=== PATIENT | female | born 1945 | race Caucasian/White ===

== ENCOUNTER 2018-05-22 09:59 | Inpatient (IN) | payer OTHER ==
[~2018-05-22] VITALS: Ht 167.6 cm; Wt 65.0 kg
[2018-05-22 10:01] VITALS: Ht 167.6 cm; Wt 65.0 kg
[2018-05-22] MEDS ORDERED: PANTOPRAZOLE IV 80 MG in SOD CHLORIDE 0.9% 100 ML IV STA (10:07)
[2018-05-22] MEDS ORDERED: ONDANSETRON 4 MG INJ IV STA (10:07)
[2018-05-22] MEDS ORDERED: PANTOPRAZOLE IV 80 MG in SOD CHLORIDE 0.9% 100 ML IVPB STA (10:07)
[2018-05-22] MEDS ORDERED: SOD CHLORIDE 0.9% 1,000 ML IV STA (10:07)
--- NOTE | 2018-05-22 10:51 | ERD ---
ER Documentation Chief Complaint Chief Complaint BIB RA FOR EVAL OF AP. PT ON BRILINTA FOR HEART STENT. EPISODE OF DARK STOO HPI Very pleasant 72-year-old female who is visiting from out of town. The patient takes Brilinta for cardiac stent. The patient notes less than 24 hours of symptoms including malonic stool. The patient describes mild epigastric discomfort and now one episode of coffee-ground emesis. She does describe some diaphoresis and generalized malaise. She denies drinking alcohol or other NSAIDs at this time. No prior history of GI bleed. She denies any chest pain or pressure. ROS All systems reviewed and are negative except as per history of present illness. Allergies Allergies: Coded Allergies: Penicillins (Verified Allergy, Unknown, 05/22/18) PMhx/Soc History of Surgery: Yes (right breast ) Anesthesia Reaction: No Hx Neurological Disorder: No Hx Respiratory Disorders: No Hx Cardiac Disorders: Yes (stent, htn,) Hx Psychiatric Problems: No Hx Miscellaneous Medical Probl: No Hx Alcohol Use: No Hx Substance Use: No Hx Tobacco Use: No Smoking Status: Never smoker FmHx Family History: No diabetes Physical Exam Vitals Vital Signs Date Temp Pulse Resp B/P (MAP) Pulse Ox O2 O2 Flow FiO2 Time Delivery Rate 05/22/18 98.9 77 18 103/66 99 Room Air 12:08 (78) 05/22/18 95 16 118/87 100 Room Air 10:53 (97) 05/22/18 Nasal 2 10:19 Cannula 05/22/18 97.8 122 18 111/70 98 10:01 (84) Physical Exam General: Pallor and diaphoresis Head: Normocephalic, atraumatic. Eyes: Pupils equally reactive, EOM intact ENT: Moist mucous membranes Neck: Supple, no lymphadenopathy Respiratory: Lungs clear bilaterally, no distress Cardiovascular: Tachycardia RRR, no murmurs, rubs, or gallops Abdominal: Soft, mild epigastric abdominal tenderness without rebound or guarding, non-distended, no peritoneal signs : Deferred given obvious evidence of coffee-ground emesis at bedside MSK: No edema, no unilateral swelling, 5/5 strength Neurologic: Alert and oriented, moving all extremities, normal speech, no focal weakness, no cerebellar signs Skin: No rash Psych: Normal mood Result Diagram: 05/22/18 1015 05/22/18 1015 Results 24 hrs Laboratory Tests Test 05/22/18 10:15 White Blood Count 11.7 10^3/ul Red Blood Count 3.94 10^6/ul Hemoglobin 11.6 g/dl Hematocrit 36.1 % Mean Corpuscular Volume 91.6 fl Mean Corpuscular Hemoglobin 29.4 pg Mean Corpuscular Hemoglobin Concent 32.1 g/dl Red Cell Distribution Width 14.0 % Platelet Count 410 10^3/UL Mean Platelet Volume 9.9 fl Immature Granulocytes % 0.400 % Neutrophils % 68.8 % Lymphocytes % 22.5 % Monocytes % 7.8 % Eosinophils % 0.2 % Basophils % 0.3 % Nucleated Red Blood Cells % 0.0 /100WBC Immature Granulocytes # 0.050 10^3/ul Neutrophils # 8.1 10^3/ul Lymphocytes # 2.6 10^3/ul Monocytes # 0.9 10^3/ul Eosinophils # 0.0 10^3/ul Basophils # 0.0 10^3/ul Nucleated Red Blood Cells # 0.0 10^3/ul Prothrombin Time 13.0 Sec Prothrombin Time Ratio 1.0 INR International Normalized Ratio 0.97 Activated Partial Thromboplast Time 23.0 Sec Sodium Level 143 mmol/L Potassium Level 4.5 mmol/L Chloride Level 109 mmol/L Carbon Dioxide Level 20 mmol/L Anion Gap 14 Blood Urea Nitrogen 30 mg/dl Creatinine 0.60 mg/dl Est Glomerular Filtrat Rate mL/min > 60 mL/min Glucose Level 205 mg/dl Calcium Level 9.1 mg/dl Total Bilirubin 0.5 mg/dl Direct Bilirubin 0.00 mg/dl Indirect Bilirubin 0.5 mg/dl Aspartate Amino Transf (AST/SGOT) 20 IU/L Alanine Aminotransferase (ALT/SGPT) 18 IU/L Alkaline Phosphatase 69 IU/L Troponin I < 0.012 ng/ml Total Protein 6.9 g/dl Albumin 4.0 g/dl Globulin 2.90 g/dl Albumin/Globulin Ratio 1.37 Lipase 76 U/L Current Medications Medications Dose Sig/Shaun Start Time Status Last (Trade) Ordered Route PRN Stop Time Admin Dose Reason Admin Sodium 1,000 ml @ Q1H STAT 05/22/18 DC 05/22/18 Chloride 1,000 mls/hr IV 10:07 05/22/18 10:24 11:06 Pantoprazole 100 ml @ ONCE STAT 05/22/18 DC 05/22/18 80 mg/Sodium 400 mls/hr IVPB 10:07 05/22/18 11:08 Chloride 10:21 Pantoprazole 100 ml @ ONCE STAT 05/22/18 05/22/18 80 mg/Sodium 10 mls/hr IV 10:07 05/22/18 11:50 Chloride 20:06 Ondansetron 4 mg ONCE STAT 05/22/18 DC 05/22/18 HCl (Zofran IV 10:07 05/22/18 10:24 Inj) 10:11 Sodium 1,000 ml @ Q10H IV 05/22/18 Chloride 100 mls/hr 11:34 IV Flush 3 ml PER 05/22/18 (NS 3 ml) PROTOCOL IV 12:00 Ondansetron 4 mg Q6H PRN 05/22/18 HCl (Zofran IV 12:00 Inj) NAUSEA/VOMITI NG 650 mg Q6H PRN 05/22/18 Acetaminophen PO .PAIN 1-3 12:00 (Tylenol OR TEMP Tab) Pantoprazole 100 ml @ Q10H IV 05/22/18 80 mg/Sodium 10 mls/hr 12:00 Chloride Morphine 2 mg Q4H PRN 05/22/18 Sulfate IV SEVERE 12:00 (morphine) PAIN LEVEL 7-10 Ondansetron 4 mg BRIDGE ORDER 05/22/18 HCl (Zofran PRN IV 12:00 05/23/18 Inj) NAUSEA/VOMITI 11:59 NG 650 mg ER BRIDGE 05/22/18 Acetaminophen PRN PO 12:00 05/23/18 (Tylenol .MILD PAIN 11:59 Tab) 1-3 OR TEMP Procedures/MDM EKG, MONITORS, & DIAGNOSTIC IMAGING: EKG: I reviewed and interpreted a 12-lead EKG. Rhythm: Sinus tachycardia rate of 103 ST Changes: No contiguous ST segment elevations T waves: No contiguous T wave inversions Impression: No evidence of acute cardiac ischemia CT abdomen and pelvis: IMPRESSION: No evidence of urolithiasis, obstructive uropathy, diverticulitis or appendicitis. Diverticulosis. Cholelithiasis. Hiatal hernia. No bowel mass or obstruction. Senescent degenerative changes spine. Osteoarthritis right hip joint. LAB INTERPRETATION: I reviewed the laboratory testing and it shows mild anemia MEDICAL DECISION MAKING: The patient has clinical signs and symptoms very consistent with upper GI hemorrhage complaining of coffee-ground emesis with melanotic stool in the setting of taking Brilinta. Likely gastric etiology. PPI bolus and drip would be appropriate. Patient has a mostly benign abdominal exam but CT imaging would be indicated given mild epigastric abdominal discomfort. I do not believe this is consistent with acute coronary syndrome. The patient will benefit from inpatient hospitalization and GI consultation ER COURSE: * Placed on the monitor, 2 large bore peripheral IVs were inserted. Patient given IV fluids and nausea medication * Hemoglobin appears to be stable. Continue to monitor. Blood pressure is holding. No indication for transfusion at this time. * PPI bolus and drip was initiated. * Pain improved. * At this time no indication for NG tube or NG lavage. No indication for blood transfusion. Inpatient hospitalization with GI consultation appropriate. CONSULTATION: None DISPOSITION PLAN: Accepting care team and consultations: I discussed the current laboratory data, diagnostic imaging and emergency care provided. Admitting team: Dr. Gomez Admitting team indication: Insurance directed Departure Diagnosis: Primary Impression: Upper GI bleed Additional Impression: Epigastric abdominal pain Condition: Stable GLENDY GOULD MD May 22, 2018 10:51
[2018-05-22] MEDS ORDERED: ONDANSETRON 4 MG INJ IV PRN ×2 (12:00)
[2018-05-22] MEDS: PANTOPRAZOLE IV 80 MG in SOD CHLORIDE 0.9% 100 ML IV SCH ×2 (12:00→22:57)
[2018-05-22] MEDS ORDERED: morphine 2 MG INJ IV PRN (12:00)
[2018-05-22] MEDS ORDERED: ACETAMINOPHEN 325 MG TAB PO PRN ×2 (12:00)
[2018-05-22] MEDS ORDERED: NACL 0.9% 3 ML SYG IV SCH (12:00)
--- NOTE | 2018-05-22 12:05 | HP ---
Date/Time of Note Date/Time of Note DATE: 05/22/18 TIME: 12:04 Assessment/Plan VTE Prophylaxis Pharmacological prophylaxis: other Lines/Catheters IV C[facility]ter Type [facility]from [facility] Saline Lock Assessment/Plan Hospital Course Patient is a female with a past medical history significant for coronary artery disease and depression who presents to [facility] for 1 day onset of dark stool. Patient states that she has never had a upper GI bleed, dark stool before but does have a history of hemorrhoids. Patient states that there was nothing that preceded the event, she was visiting from [facility] to help her daughter with a new baby. Patient currently complains of some abdominal discomfort but denies any abdominal pain. Patient denies chest pain, shortness of breath, headache, leg pain, bowel or bladder dysfunction. Objective Physical exam General: Patient is laying in bed and answers questions appropriately Mentation: Patient is alert and oriented 4, Head: Normocephalic atraumatic Eyes: EOMI, pupils reactive to light Neck: Supple, nontender, midline Respiratory: Clear to auscultation bilaterally Cardiovascular: regular rate, no obvious murmurs Gastrointestinal: non-tender to palpation, bowel sounds heard. Neurological: Moves all extremities spontaneously Skin: No new skin lesions Assessment and plan Upper GI bleed -GI consulted -N.p.o. -IV fluid -Protonix drip -Hemoglobin will be rechecked every 6 hours for 1 day -Fecal occult -Hold Brilinta and aspirin Coronary artery disease -Hold Brilinta and aspirin, stent was placed near 1 year ago, resume when safe with GI -Hold p.o. meds for now, keep n.p.o. for possible GI intervention Dyslipidemia -Resume home meds and possible Depression -Resume home meds with possible Disposition -GI consultation pending. Result Diagram: 05/22/18 1015 05/22/18 1015 Results 24hrs Laboratory Tests Test 05/22/18 10:15 White Blood Count 11.7 H Red Blood Count 3.94 L Hemoglobin 11.6 L Hematocrit 36.1 L Mean Corpuscular Volume 91.6 Mean Corpuscular Hemoglobin 29.4 Mean Corpuscular Hemoglobin Concent 32.1 Red Cell Distribution Width 14.0 Platelet Count 410 Mean Platelet Volume 9.9 Immature Granulocytes % 0.400 Neutrophils % 68.8 Lymphocytes % 22.5 Monocytes % 7.8 Eosinophils % 0.2 Basophils % 0.3 Nucleated Red Blood Cells % 0.0 Immature Granulocytes # 0.050 H Neutrophils # 8.1 H Lymphocytes # 2.6 Monocytes # 0.9 Eosinophils # 0.0 Basophils # 0.0 Nucleated Red Blood Cells # 0.0 Prothrombin Time 13.0 Prothrombin Time Ratio 1.0 INR International Normalized Ratio 0.97 Activated Partial Thromboplast Time 23.0 Sodium Level 143 Potassium Level 4.5 Chloride Level 109 Carbon Dioxide Level 20 L Anion Gap 14 H Blood Urea Nitrogen 30 H Creatinine 0.60 Est Glomerular Filtrat Rate mL/min > 60 Glucose Level 205 Calcium Level 9.1 Total Bilirubin 0.5 Direct Bilirubin 0.00 Indirect Bilirubin 0.5 Aspartate Amino Transf (AST/SGOT) 20 Alanine Aminotransferase (ALT/SGPT) 18 Alkaline Phosphatase 69 Troponin I < 0.012 Total Protein 6.9 Albumin 4.0 Globulin 2.90 Albumin/Globulin Ratio 1.37 Lipase 76 HPI/ROS Admit Date/Time Admit Date/Time PMH/Family/Social Past Medical History Medications Current Medications Pantoprazole 80 mg/Sodium Chloride 100 ml @ 10 mls/hr ONCE STAT IV Last administered on 05/22/18at 11:50; Admin Dose 10 MLS/HR; Start 05/22/18 at 10:07; Stop 05/22/18 at 20:06 Sodium Chloride 1,000 ml @ 100 mls/hr Q10H IV ; Start 05/22/18 at 11:34 IV Flush (NS 3 ml) 3 ml PER PROTOCOL IV ; Start 05/22/18 at 12:00 Ondansetron HCl (Zofran Inj) 4 mg Q6H PRN IV NAUSEA/VOMITING; Start 05/22/18 at 12:00 Acetaminophen (Tylenol Tab) 650 mg Q6H PRN PO .PAIN 1-3 OR TEMP; Start 05/22/18 at 12:00 Pantoprazole 80 mg/Sodium Chloride 100 ml @ 10 mls/hr Q10H IV ; Start 05/22/18 at 12:00 Morphine Sulfate (morphine) 2 mg Q4H PRN IV SEVERE PAIN LEVEL 7-10; Start 05/22/18 at 12:00 Ondansetron HCl (Zofran Inj) 4 mg BRIDGE ORDER PRN IV NAUSEA/VOMITING; Start 05/22/18 at 12:00; Stop 05/23/18 at 11:59 Acetaminophen (Tylenol Tab) 650 mg ER BRIDGE PRN PO .MILD PAIN 1-3 OR TEMP; Start 05/22/18 at 12:00; Stop 05/23/18 at 11:59 Coded Allergies: Penicillins (Verified Allergy, Unknown, 05/22/18) Social History Smoking Status: Never smoker Exam/Review of Systems Vital Signs Vitals Vital Signs Date Temp Pulse Resp B/P (MAP) Pulse Ox O2 O2 Flow FiO2 Time Delivery Rate 05/22/18 95 16 118/87 100 Room Air 10:53 (97) 05/22/18 2 10:19 05/22/18 97.8 10:01 MADIE MORILLO May 22, 2018 12:05
[2018-05-22 12:36] VITALS: BP 127/78; PULSE 93; RESP 18
[2018-05-22] MEDS: SOD CHLORIDE 0.9% 1,000 ML IV SCH ×2 (13:15→21:34)
--- NOTE | 2018-05-22 14:35 | CONS ---
Assessment/Plan Assessment/Plan Hospital Course (Demo Recall) Suspected GI bleed with melanotic stools and coffee grounds emesis Anemia secondary to above CAD status post cardiac stent [place] HTN Hemorrhoids Plan: Discussed the need for colonoscopy and EGD with the patient and daughter at bedside. Benefits, alternatives, risk, and potential complications of the procedure were discussed with the patient who is agreeable to proceed. NPO, bowel prep. Continue IV protonix infusion. Monitor serial CBC. Transfuse to keep Hgb >7.5 Patient seen in collaboration with Dr. Beard CC: LALITO BEARD ; Consultation Date/Type/Reason Admit Date/Time Date of Consultation: May 22, 2018 Type of Consult gastroenterology Reason for Consultation melena, suspected GI bleed Requesting Provider: MADIE MORILLO Date/Time of Note DATE: 05/22/18 TIME: 14:15 Hx of Present Illness Patient is a 72 y/o female admitted yesterday with a 1 day history of dark stools associated with nausea and coffee grounds emesis. She reports a history of hemorrhoids and occasional bright red blood per rectum. She does report some weakness and dizziness. She reports multiple dark bowel movements upon arrival to the hospital, about 2 episodes today. She denies shortness of breath or chest pain, fevers, chills or weakness. She reports having had a colonoscopy last over 5 years ago. She reports a history of CAD and [place] last year status post a cardiac stent 07/08/17. She is on ASA and brilinta which are both on hold at this point. She otherwise has a history of HTN, hyperlipidemia, breast cancer. Denies any major abdominal surgeries. Constitutional: no complaints ENT: No no complaints, No bleeding, No pain, No congestion, No discharge, No dysphagia, No sore throat, No other Respiratory: No no complaints, No pain, No cough, No pleuritic pain, No shortness of breath, No sputum, No wheezing, No other Cardiovascular: lightheadedness Gastrointestinal: blood, nausea, vomiting Genitourinary: No no complaints, No bleeding, No dysuria, No discharge, No flank pain, No hematuria, No other Musculoskeletal: No no complaints, No back pain, No bone/joint pain, No neck pain, No restricted range of motion, No swelling, No other Skin: No no complaints, No bruising, No erythema, No laceration, No pruritis, No rash, No skin lesions, No other Neurologic: No no complaints, No confusion, No dizziness, No focal-weakness, No headache, No syncope, No seizure, No other Psychological: No no complaints, No nl mood/affect, No anxiety, No confusion, No depression, No suicidal, No other Past Medical History Medications Current Medications Pantoprazole 80 mg/Sodium Chloride 100 ml @ 10 mls/hr ONCE STAT IV Last administered on 05/22/18at 11:50; Admin Dose 10 MLS/HR; Start 05/22/18 at 10:07; Stop 05/22/18 at 20:06 Sodium Chloride 1,000 ml @ 100 mls/hr Q10H IV Last administered on 05/22/18at 13:15; Admin Dose 100 MLS/HR; Start 05/22/18 at 11:34 IV Flush (NS 3 ml) 3 ml PER PROTOCOL IV ; Start 05/22/18 at 12:00 Ondansetron HCl (Zofran Inj) 4 mg Q6H PRN IV NAUSEA/VOMITING; Start 05/22/18 at 12:00 Acetaminophen (Tylenol Tab) 650 mg Q6H PRN PO .PAIN 1-3 OR TEMP; Start 05/22/18 at 12:00 Pantoprazole 80 mg/Sodium Chloride 100 ml @ 10 mls/hr Q10H IV ; Start 05/22/18 at 12:00 Morphine Sulfate (morphine) 2 mg Q4H PRN IV SEVERE PAIN LEVEL 7-10; Start 05/22/18 at 12:00 Ondansetron HCl (Zofran Inj) 4 mg BRIDGE ORDER PRN IV NAUSEA/VOMITING; Start 05/22/18 at 12:00; Stop 05/23/18 at 11:59 Acetaminophen (Tylenol Tab) 650 mg ER BRIDGE PRN PO .MILD PAIN 1-3 OR TEMP; Start 05/22/18 at 12:00; Stop 05/23/18 at 11:59 Allergies: Coded Allergies: Penicillins (Verified Allergy, Unknown, 05/22/18) Past Surgical History Past Surgical Hx: no surgical history Family History Significant Family History: cancer (father with cancer) Social History Smoking Status: Never smoker Exam/Review of Systems Exam Vitals Vital Signs Date Temp Pulse Resp B/P (MAP) Pulse Ox O2 O2 Flow FiO2 Time Delivery Rate 05/22/18 97.8 93 18 127/78 96 12:36 (94) 05/22/18 Room Air 12:08 05/22/18 2 10:19 Results Result Diagram: 05/22/18 1015 05/22/18 1015 Results 24hrs Laboratory Tests Test 05/22/18 10:15 White Blood Count 11.7 H Red Blood Count 3.94 L Hemoglobin 11.6 L Hematocrit 36.1 L Mean Corpuscular Volume 91.6 Mean Corpuscular Hemoglobin 29.4 Mean Corpuscular Hemoglobin Concent 32.1 Red Cell Distribution Width 14.0 Platelet Count 410 Mean Platelet Volume 9.9 Immature Granulocytes % 0.400 Neutrophils % 68.8 Lymphocytes % 22.5 Monocytes % 7.8 Eosinophils % 0.2 Basophils % 0.3 Nucleated Red Blood Cells % 0.0 Immature Granulocytes # 0.050 H Neutrophils # 8.1 H Lymphocytes # 2.6 Monocytes # 0.9 Eosinophils # 0.0 Basophils # 0.0 Nucleated Red Blood Cells # 0.0 Prothrombin Time 13.0 Prothrombin Time Ratio 1.0 INR International Normalized Ratio 0.97 Activated Partial Thromboplast Time 23.0 Sodium Level 143 Potassium Level 4.5 Chloride Level 109 Carbon Dioxide Level 20 L Anion Gap 14 H Blood Urea Nitrogen 30 H Creatinine 0.60 Est Glomerular Filtrat Rate mL/min > 60 Glucose Level 205 Calcium Level 9.1 Total Bilirubin 0.5 Direct Bilirubin 0.00 Indirect Bilirubin 0.5 Aspartate Amino Transf (AST/SGOT) 20 Alanine Aminotransferase (ALT/SGPT) 18 Alkaline Phosphatase 69 Troponin I < 0.012 Total Protein 6.9 Albumin 4.0 Globulin 2.90 Albumin/Globulin Ratio 1.37 Lipase 76 Medications Medication Current Medications Pantoprazole 80 mg/Sodium Chloride 100 ml @ 10 mls/hr ONCE STAT IV Last administered on 05/22/18at 11:50; Admin Dose 10 MLS/HR; Start 05/22/18 at 10:07; Stop 05/22/18 at 20:06 Sodium Chloride 1,000 ml @ 100 mls/hr Q10H IV Last administered on 05/22/18at 13:15; Admin Dose 100 MLS/HR; Start 05/22/18 at 11:34 IV Flush (NS 3 ml) 3 ml PER PROTOCOL IV ; Start 05/22/18 at 12:00 Ondansetron HCl (Zofran Inj) 4 mg Q6H PRN IV NAUSEA/VOMITING; Start 05/22/18 at 12:00 Acetaminophen (Tylenol Tab) 650 mg Q6H PRN PO .PAIN 1-3 OR TEMP; Start 05/22/18 at 12:00 Pantoprazole 80 mg/Sodium Chloride 100 ml @ 10 mls/hr Q10H IV ; Start 05/22/18 at 12:00 Morphine Sulfate (morphine) 2 mg Q4H PRN IV SEVERE PAIN LEVEL 7-10; Start 05/22/18 at 12:00 Ondansetron HCl (Zofran Inj) 4 mg BRIDGE ORDER PRN IV NAUSEA/VOMITING; Start 05/22/18 at 12:00; Stop 05/23/18 at 11:59 Acetaminophen (Tylenol Tab) 650 mg ER BRIDGE PRN PO .MILD PAIN 1-3 OR TEMP; Start 05/22/18 at 12:00; Stop 05/23/18 at 11:59 ALVA ZHOU NP May 22, 2018 14:30
[2018-05-22] MEDS ORDERED: BISACODYL (EC) 5 MG TAB PO ONE ×2 (15:00→20:00)
[2018-05-22] MEDS ORDERED: MAGNESIUM CITRATE 300 ML BTL PO ONE (16:00)
[2018-05-22] MEDS ORDERED: POLYETHYLENE GLYCOL 3350 119 GM POWDER PO ONE ×2 (17:00→19:00)
[2018-05-22] MEDS ORDERED: METOCLOPRAMIDE 10 MG INJ IV ONE (18:00)
[2018-05-22] MEDS ORDERED: METOCLOPRAMIDE 10 MG INJ IV PRN (18:30)
[2018-05-22 19:50] VITALS: BP 127/80; PULSE 99; RESP 16
[2018-05-23] VITALS (12 sets, daily range): BP systolic 115–154; BP diastolic 63–88; PULSE 70–100; RESP 12–22
[2018-05-23] MEDS: SOD CHLORIDE 0.9% 1,000 ML IV SCH ×4 (06:10→18:40)
--- NOTE | 2018-05-23 08:17 | PREAC ---
Date/Time of Note Date/Time of Note DATE: 05/23/18 TIME: 08:14 Anesthesia Eval and Record Evaluation Time Pre-Procedure Interview DATE: 05/23/18 TIME: 08:14 Age 72 Sex female NPO: 8 hrs Preoperative diagnosis GI Bleed Planned procedure EGD, Colonoscopy Past Medical History Past Medical History: Includes Cardio: HTN, Dyslipidemia, [place] (07/09/27), CAD (07/08/17 PCI with Stent, no active CP or SOB), PTCA/Stent Heme: Anemia (8.4 Hb) Psych: Depression Surgery & Anesthesia Issues No known issue (Lumpectomy, no arm restriction) Meds Anticoagulation: No (Blinta d/c'd) Beta Annie within 24 hr: No Reason Beta Annie not given: Pt. not on B-Annie Current Medications Sodium Chloride 1,000 ml @ 100 mls/hr Q10H IV Last administered on 05/23/18at 06:10; Admin Dose 100 MLS/HR; Start 05/22/18 at 11:34 IV Flush (NS 3 ml) 3 ml PER PROTOCOL IV ; Start 05/22/18 at 12:00 Ondansetron HCl (Zofran Inj) 4 mg Q6H PRN IV NAUSEA/VOMITING Last administered on 05/22/18at 16:34; Admin Dose 4 MG; Start 05/22/18 at 12:00 Acetaminophen (Tylenol Tab) 650 mg Q6H PRN PO .PAIN 1-3 OR TEMP; Start 05/22/18 at 12:00 Pantoprazole 80 mg/Sodium Chloride 100 ml @ 10 mls/hr Q10H IV Last administered on 05/22/18at 22:57; Admin Dose 10 MLS/HR; Start 05/22/18 at 12:00 Morphine Sulfate (morphine) 2 mg Q4H PRN IV SEVERE PAIN LEVEL 7-10; Start 05/22/18 at 12:00 Metoclopramide HCl (Reglan) 10 mg Q4H PRN IV NAUSEA; Start 05/22/18 at 18:30 Meds reviewed: Yes Allergies Coded Allergies: Penicillins (Verified Allergy, Unknown, 05/22/18) Allergies Reviewed: Yes Labs/Studies Labs Reviewed: Reviewed by anesthesiologist Result Diagram: 05/23/18 0505 05/23/18 0505 Laboratory Tests 3/4/19 05:05 Blood Bank Test 05/22/18 10:16 Antibody Screen NEGATIVE Blood Type O POSITIVE test: N/A Studies: ECG (ST with RBBB, RVH) Pre-procedure Exam Last vitals Vital Signs Date Temp Pulse Resp B/P (MAP) Pulse Ox O2 O2 Flow FiO2 Time Delivery Rate 05/23/18 98.0 86 18 154/78 100 Room Air 08:07 (103) 05/22/18 2 10:19 Airway: Adequate mouth opening, Adequate thyromental dist Mallampati: Mallampati II Teeth: Normal Lung: Normal Heart: Normal ASA Physical Status ASA physical status: 3 Emergency: None Planned Anesthetic General/MAC: MAC Pre-operative Attestations Prior to commencing anesthesia and surgery, the patient was re-evaluated, there was verification of: *The patient's identity *The results of appropriate recent lab work and preoperative vital signs *The above evaluation not changing prior to induction *Anesthetic plan, risk benefits, alternative and complications discussed with patient/family; questions answered; patient/family understands, accepts and wishes to proceed. ARTURO VALERIO ROPE TOW OPERATOR May 23, 2018 08:17
[2018-05-23] MEDS: PANTOPRAZOLE IV 80 MG in SOD CHLORIDE 0.9% 100 ML IV SCH (09:04)
--- NOTE | 2018-05-23 10:05 | PN ---
Date/Time of Note Date/Time of Note DATE: 05/23/18 TIME: 10:05 Assessment/Plan VTE Prophylaxis Risk score (from [facility] [place])>0 risk: 2 SCD applied (from [facility] [place]): Yes Pharmacological prophylaxis: NA/contraindicated Pharm contraindication: bleeding Lines/Catheters IV [facility]ter Type (from [facility]): Saline Lock Assessment/Plan Assessment/Plan 1. Acute Upper GI bleed - patient with small amount of melena since admission but denies any profuse bleeding - GI on board and plans for EGD/Colonoscopy - Will continue on PPI and monitor H/H - Aspirin and Brilinta is currently on hold 2. Coronary artery disease - Hold Brilinta and aspirin, stent was placed near 1 year ago, resume when hemoglobin stabilizes - Will resume PO medications when able 3. Dyslipidemia -Resume home meds and possible 4. Depression - Resume home meds when tolerating PO 5. Disposition - Plan of care based on EGD/Colonoscopy results. Result Diagram: 05/23/18 0505 05/23/18 0505 Results 24hrs Laboratory Tests Test 05/22/18 10:15 05/22/18 13:48 05/22/18 17:57 05/23/18 00:50 White Blood Count 11.7 H Red Blood Count 3.94 L Hemoglobin 11.6 L 9.7 L 9.1 L Hematocrit 36.1 L 30.1 L 27.8 L Mean Corpuscular Volume 91.6 Mean Corpuscular 29.4 Hemoglobin Mean Corpuscular 32.1 Hemoglobin Concent Red Cell Distribution 14.0 Width Platelet Count 410 Mean Platelet Volume 9.9 Immature Granulocytes % 0.400 Neutrophils % 68.8 Lymphocytes % 22.5 Monocytes % 7.8 Eosinophils % 0.2 Basophils % 0.3 Nucleated Red Blood 0.0 Cells % Immature Granulocytes # 0.050 H Neutrophils # 8.1 H Lymphocytes # 2.6 Monocytes # 0.9 Eosinophils # 0.0 Basophils # 0.0 Nucleated Red Blood 0.0 Cells # Prothrombin Time 13.0 Prothrombin Time Ratio 1.0 INR International 0.97 Normalized Ratio Activated 23.0 Partial Thromboplast Time Sodium Level 143 Potassium Level 4.5 Chloride Level 109 Carbon Dioxide Level 20 L Anion Gap 14 H Blood Urea Nitrogen 30 H Creatinine 0.60 Est Glomerular Filtrat > 60 Rate mL/min Glucose Level 205 Calcium Level 9.1 Total Bilirubin 0.5 Direct Bilirubin 0.00 Indirect Bilirubin 0.5 Aspartate Amino 20 Transf (AST/SGOT) Alanine 18 Aminotransferase (ALT/SG PT) Alkaline Phosphatase 69 Troponin I < 0.012 Total Protein 6.9 Albumin 4.0 Globulin 2.90 Albumin/Globulin Ratio 1.37 Lipase 76 Stool Occult Blood POSITIVE Test 05/23/18 05:05 White Blood Count 6.9 # Red Blood Count 2.86 #L Hemoglobin 8.4 L Hematocrit 26.3 L Mean Corpuscular Volume 92.0 Mean Corpuscular 29.4 Hemoglobin Mean Corpuscular 31.9 L Hemoglobin Concent Red Cell Distribution 14.7 H Width Platelet Count 288 # Mean Platelet Volume 10.2 Immature Granulocytes % 0.300 Neutrophils % 61.3 Lymphocytes % 27.8 Monocytes % 9.5 Eosinophils % 0.7 Basophils % 0.4 Nucleated Red Blood 0.0 Cells % Immature Granulocytes # 0.020 Neutrophils # 4.2 Lymphocytes # 1.9 Monocytes # 0.7 Eosinophils # 0.1 Basophils # 0.0 Nucleated Red Blood 0.0 Cells # Sodium Level 144 Potassium Level 3.9 Chloride Level 113 H Carbon Dioxide Level 22 Anion Gap 9 # Blood Urea Nitrogen 13 # Creatinine 0.57 Est Glomerular Filtrat > 60 Rate mL/min Glucose Level 106 # Hemoglobin A1c 6.0 H Calcium Level 8.5 Magnesium Level 2.1 Total Bilirubin 0.1 L Direct Bilirubin 0.00 Indirect Bilirubin 0.1 Aspartate Amino 16 Transf (AST/SGOT) Alanine 25 Aminotransferase (ALT/SG PT) Alkaline Phosphatase 52 Total Protein 5.4 #L Albumin 3.0 #L Globulin 2.40 Albumin/Globulin Ratio 1.25 Subjective 24 Hr Interval Summary Free Text/Dictation Patient doing well and does admit to some dark stool this am but denies any hematemesis. Plans for EGD and colonoscopy today. Exam/Review of Systems Exam Vitals Vital Signs Date Temp Pulse Resp B/P (MAP) Pulse Ox O2 O2 Flow FiO2 Time Delivery Rate 05/23/18 98.0 86 18 154/78 100 Room Air 08:07 (103) 05/22/18 2 10:19 Intake and Output 05/22/18 05/22/18 05/23/18 1515:00 23:00 07:00 IntakeIntake Total 460 ml 670 ml OutputOutput Total 300 ml BalanceBalance 160 ml 670 ml Exam General: Patient is laying in bed and answers questions appropriately Neck: Supple, nontender, midline Respiratory: Clear to auscultation bilaterally. no wheezing Cardiovascular: regular rate and rhythm, no obvious murmurs Gastrointestinal: soft, non-tender to palpation, bowel sounds heard. Neurological: Moves all extremities spontaneously Skin: No new skin lesions Results Results 24hrs Laboratory Tests Test 05/22/18 10:15 05/22/18 13:48 05/22/18 17:57 05/23/18 00:50 White Blood Count 11.7 H Red Blood Count 3.94 L Hemoglobin 11.6 L 9.7 L 9.1 L Hematocrit 36.1 L 30.1 L 27.8 L Mean Corpuscular Volume 91.6 Mean Corpuscular 29.4 Hemoglobin Mean Corpuscular 32.1 Hemoglobin Concent Red Cell Distribution 14.0 Width Platelet Count 410 Mean Platelet Volume 9.9 Immature Granulocytes % 0.400 Neutrophils % 68.8 Lymphocytes % 22.5 Monocytes % 7.8 Eosinophils % 0.2 Basophils % 0.3 Nucleated Red Blood 0.0 Cells % Immature Granulocytes # 0.050 H Neutrophils # 8.1 H Lymphocytes # 2.6 Monocytes # 0.9 Eosinophils # 0.0 Basophils # 0.0 Nucleated Red Blood 0.0 Cells # Prothrombin Time 13.0 Prothrombin Time Ratio 1.0 INR International 0.97 Normalized Ratio Activated 23.0 Partial Thromboplast Time Sodium Level 143 Potassium Level 4.5 Chloride Level 109 Carbon Dioxide Level 20 L Anion Gap 14 H Blood Urea Nitrogen 30 H Creatinine 0.60 Est Glomerular Filtrat > 60 Rate mL/min Glucose Level 205 Calcium Level 9.1 Total Bilirubin 0.5 Direct Bilirubin 0.00 Indirect Bilirubin 0.5 Aspartate Amino 20 Transf (AST/SGOT) Alanine 18 Aminotransferase (ALT/SG PT) Alkaline Phosphatase 69 Troponin I < 0.012 Total Protein 6.9 Albumin 4.0 Globulin 2.90 Albumin/Globulin Ratio 1.37 Lipase 76 Stool Occult Blood POSITIVE Test 05/23/18 05:05 White Blood Count 6.9 # Red Blood Count 2.86 #L Hemoglobin 8.4 L Hematocrit 26.3 L Mean Corpuscular Volume 92.0 Mean Corpuscular 29.4 Hemoglobin Mean Corpuscular 31.9 L Hemoglobin Concent Red Cell Distribution 14.7 H Width Platelet Count 288 # Mean Platelet Volume 10.2 Immature Granulocytes % 0.300 Neutrophils % 61.3 Lymphocytes % 27.8 Monocytes % 9.5 Eosinophils % 0.7 Basophils % 0.4 Nucleated Red Blood 0.0 Cells % Immature Granulocytes # 0.020 Neutrophils # 4.2 Lymphocytes # 1.9 Monocytes # 0.7 Eosinophils # 0.1 Basophils # 0.0 Nucleated Red Blood 0.0 Cells # Sodium Level 144 Potassium Level 3.9 Chloride Level 113 H Carbon Dioxide Level 22 Anion Gap 9 # Blood Urea Nitrogen 13 # Creatinine 0.57 Est Glomerular Filtrat > 60 Rate mL/min Glucose Level 106 # Hemoglobin A1c 6.0 H Calcium Level 8.5 Magnesium Level 2.1 Total Bilirubin 0.1 L Direct Bilirubin 0.00 Indirect Bilirubin 0.1 Aspartate Amino 16 Transf (AST/SGOT) Alanine 25 Aminotransferase (ALT/SG PT) Alkaline Phosphatase 52 Total Protein 5.4 #L Albumin 3.0 #L Globulin 2.40 Albumin/Globulin Ratio 1.25 Medications Medication Current Medications Sodium Chloride 1,000 ml @ 100 mls/hr Q10H IV Last administered on 05/23/18at 06:10; Admin Dose 100 MLS/HR; Start 05/22/18 at 11:34 IV Flush (NS 3 ml) 3 ml PER PROTOCOL IV ; Start 05/22/18 at 12:00 Ondansetron HCl (Zofran Inj) 4 mg Q6H PRN IV NAUSEA/VOMITING Last administered on 05/22/18at 16:34; Admin Dose 4 MG; Start 05/22/18 at 12:00 Acetaminophen (Tylenol Tab) 650 mg Q6H PRN PO .PAIN 1-3 OR TEMP; Start 05/22/18 at 12:00 Pantoprazole 80 mg/Sodium Chloride 100 ml @ 10 mls/hr Q10H IV Last administered on 05/23/18at 09:04; Admin Dose 10 MLS/HR; Start 05/22/18 at 12:00 Morphine Sulfate (morphine) 2 mg Q4H PRN IV SEVERE PAIN LEVEL 7-10; Start 05/22/18 at 12:00 Metoclopramide HCl (Reglan) 10 mg Q4H PRN IV NAUSEA; Start 05/22/18 at 18:30 CALLUM VALVERDE MD May 23, 2018 10:05
[2018-05-23] MEDS ORDERED: DIPHENHYDRAMINE 50 MG INJ IV PRN (14:00)
[2018-05-23] MEDS ORDERED: ACETAMINOPHEN 500 MG TAB PO PRN (14:00)
[2018-05-23] MEDS ORDERED: ALBUTEROL 0.083% (NEB) 2.5 MG/3 ML AMP HHN PRN (14:00)
[2018-05-23] MEDS ORDERED: ONDANSETRON 4 MG INJ IV PRN (14:00)
[2018-05-23] MEDS ORDERED: LABETALOL HCL 20MG INJ IV PRN (14:00)
[2018-05-23] MEDS ORDERED: FENTAnyl 50 MCG/ML VIAL IV PRN (14:00)
[2018-05-23] MEDS ORDERED: PROPOFOL 40 ML ONE (14:49)
[2018-05-23] MEDS ORDERED: LIDOCAINE 2% (SDV) 5 ML INJ ONE (14:49)
--- NOTE | 2018-05-23 15:04 | PAC ---
Date/Time of Note Date/Time of Note DATE: 05/23/18 TIME: 15:03 Post-Anesthesia Notes Post-Anesthesia Note Last documented vital signs Vital Signs Date Temp Pulse Resp B/P (MAP) Pulse Ox O2 O2 Flow FiO2 Time Delivery Rate 05/23/18 98.8 98 80 71 12 16 148/82 100 100 Room 13:16 150 (104) 136 Air RA 0 /71 05/22/18 2 10:19 Activity: WNL Respiratory function: WNL Cardiovascular function: WNL Mental status: Baseline Pain reasonably controlled: Yes Hydration appropriate: Yes Nausea/Vomiting absent: Yes DEV ISBELL May 23, 2018 15:04
--- NOTE | 2018-05-23 16:18 | HPN ---
Date/Time of Note Date/Time of Note DATE: 05/23/18 TIME: 16:18 Interval H&P Admission Note Pt. seen H&P reviewed: No system changes LALITO BEARD May 23, 2018 16:18
[2018-05-23] MEDS: PANTOPRAZOLE (EC) 40 MG TAB PO SCH (18:00)
[2018-05-23] MEDS: LORAZEPAM 1 MG TAB PO PRN (20:42)
[2018-05-23] MEDS: ATORVASTATIN 80 MG TAB PO SCH (20:42)
[2018-05-23] MEDS: METOPROLOL 50 MG TAB PO SCH (20:43)
[2018-05-24 01:33] VITALS: BP 120/66; PULSE 77; RESP 16
[2018-05-24] MEDS: PANTOPRAZOLE (EC) 40 MG TAB PO SCH ×2 (05:07→18:00)
[2018-05-24] MEDS: SOD CHLORIDE 0.9% 1,000 ML IV SCH (05:23)
[2018-05-24 08:13] VITALS: BP 139/67; PULSE 71; RESP 18
--- NOTE | 2018-05-24 09:13 | PN ---
Date/Time of Note Date/Time of Note DATE: 05/24/18 TIME: 09:13 Assessment/Plan VTE Prophylaxis Risk score (from [facility] [place])>0 risk: 2 SCD applied (from [facility] [place]): Yes Pharmacological prophylaxis: NA/contraindicated Pharm contraindication: bleeding Lines/Catheters IV Catheter Type (from [facility]): Peripheral IV Assessment/Plan Assessment/Plan 1. Acute Upper GI bleed - GI on board and appreciate consultation. EGD revealed gastritis and Colonoscopy showed internal hemorrhoids but no active bleeding appreciated. hgb continues to drop and will continue to monitor. If still progressively decreasing, will need CT enterography - Will need to continue PPI BID and Carafate for 4 weeks - Will resume aspirin given stent placement 06/2017 but hold Brilinta for now 2. Coronary artery disease - Stent placed 06/2017 so will resume aspirin but hold Brilinta. Will resume once hgb stabilized and no further signs of bleeding 3. Dyslipidemia - continue statin 4. Depression - continue home medications 5. Disposition - continue monitoring H/H and if continues to drop will need CT enteroscopy - advance diet as tolerated Result Diagram: 05/23/18 0505 05/23/18 0505 Subjective 24 Hr Interval Summary Free Text/Dictation Patient states shes feeling better and denies any acute issues. She does admit to a small amount of melena but no profuse bleeding. Discussed drop in hgb and need to continue to monitor. Exam/Review of Systems Exam Vitals Vital Signs Date Temp Pulse Resp B/P (MAP) Pulse Ox O2 O2 Flow FiO2 Time Delivery Rate 05/24/18 97.8 71 18 139/67 97 Room Air 08:13 (91) 05/22/18 2 10:19 Intake and Output 05/23/18 05/23/18 05/24/18 1515:00 23:00 07:00 IntakeIntake Total 70 ml 1290 ml 1000 ml BalanceBalance 70 ml 1290 ml 1000 ml Exam General: Patient is laying in bed and answers questions appropriately Neck: Supple, nontender, midline Respiratory: Clear to auscultation bilaterally. no wheezing Cardiovascular: regular rate and rhythm, no obvious murmurs Gastrointestinal: soft, non-tender to palpation, bowel sounds heard. Neurological: Moves all extremities spontaneously Skin: No new skin lesions Medications Medication Current Medications Sodium Chloride 1,000 ml @ 100 mls/hr Q10H IV Last administered on 05/24/18 05:23; Admin Dose 100 MLS/HR; Start 05/22/18 at 11:34 IV Flush (NS 3 ml) 3 ml PER PROTOCOL IV ; Start 05/22/18 at 12:00 Ondansetron HCl (Zofran Inj) 4 mg Q6H PRN IV NAUSEA/VOMITING Last administered on 05/22/18 16:34; Admin Dose 4 MG; Start 05/22/18 at 12:00 Acetaminophen (Tylenol Tab) 650 mg Q6H PRN PO .PAIN 1-3 OR TEMP Last administered on 05/23/18 18:40; Admin Dose 650 MG; Start 05/22/18 at 12:00 Morphine Sulfate (morphine) 2 mg Q4H PRN IV SEVERE PAIN LEVEL 7-10; Start 05/22/18 at 12:00 Metoclopramide HCl (Reglan) 10 mg Q4H PRN IV NAUSEA; Start 05/22/18 at 18:30 Acetaminophen (Tylenol Tab) 1,000 mg ONCE PRN PO pain; Start 05/23/18 at 14:00; Stop 05/24/18 at 13:59 Polyethylene Glycol (Miralax) 17 gm DAILY PO ; Start 05/24/18 at 09:00 Pantoprazole (Protonix Tab) 40 mg BID@06,18 PO Last administered on 05/24/18 0 5:07; Admin Dose 40 MG; Start 05/23/18 at 18:00 Atorvastatin Calcium (Lipitor) 80 mg HS PO Last administered on 05/23/18 20:42; Admin Dose 80 MG; Start 05/23/18 at 21:00 Metoprolol Tartrate (Lopressor) 50 mg BID PO Last administered on 05/23/18 20:43; Admin Dose 50 MG; Start 05/23/18 at 21:00 Lisinopril (Zestril) 20 mg DAILY PO ; Start 05/24/18 at 09:00 Escitalopram Oxalate (Lexapro) 10 mg DAILY PO ; Start 05/24/18 at 09:00 Lorazepam (Ativan) 1 mg Q6H PRN PO ANXIETY Last administered on 05/23/18 20:42; Admin Dose 1 MG; Start 05/23/18 at 17:30 CALLUM VALVERDE MD May 24, 2018 09:13
[2018-05-24] MEDS: ESCITALOPRAM 10 MG TAB PO SCH (09:24)
[2018-05-24] MEDS: POLYETHYLENE GLYCOL 17 GM PACKET PO SCH (09:25)
[2018-05-24] MEDS: METOPROLOL 50 MG TAB PO SCH ×2 (09:25→21:28)
[2018-05-24] MEDS: LISINOPRIL 20 MG TAB PO SCH (09:25)
[2018-05-24] MEDS: ASPIRIN 81 MG TAB PO SCH (12:00)
--- NOTE | 2018-05-24 12:48 | PN ---
Date/Time of Note Date/Time of Note DATE: 05/24/18 TIME: 12:38 Assessment/Plan VTE Prophylaxis Risk score (from [facility])>0 risk: 2 SCD applied (from [facility]): Yes Pharmacological prophylaxis: other (scds) Lines/Catheters IV [facility]ter Type (from [facility]): Peripheral IV Assessment/Plan Hospital Course Suspected GI bleed with melanotic stools and coffee grounds emesis Anemia secondary to above EGD 05/23/18 Gastritis, linear erosions, specimens obtained (bx neg for h.pylori) Colonoscopy 05/23/18 Left-sided diverticulosis, no evidence of diverticulitis or bleeding Internal hemorrhoids CAD status post cardiac stent ME HTN Hemorrhoids Plan: PPI BID / Carafate QID x4 weeks then stop Recheck H/h - now if continues to trending down will consider Ct enterography Patient seen in collaboration with Dr. Escobar Subjective: Course reviewed with nursing staff Patient interviewed and examined All labs, imaging and other results reviewed The patient feels well no ovr night evens No overt signs of Gi bleed. No c/o n/v. pt has occasional abd cramping (chronic) I discussed EGD/colonoscopy with patient as well as bx results PHYSICAL EXAMINATION: GENERAL: Well developed, well nourished, alert & oriented x 3, in no acute distress SKIN: No lesions, no stigmata chronic liver disease, no evidence of bleeding diathesis NECK: Supple, no masses CHEST: Inspection within normal limits. CARDIOVASCULAR: Heart: Regular rate and rhythm RESPIRATORY: Lungs clear to auscultation GASTROINTESTINAL AND LIVER: Abdomen: Soft, non tenderness, non-distended, no hernias, no masses, no organomegaly, no ascites, no guarding, no rebound tenderness, normoactive bowel sounds. Rectal: Deferred. Result Diagram: 05/24/18 0944 05/23/18 0505 Results 24hrs Laboratory Tests Test 05/24/18 09:44 White Blood Count 5.6 Red Blood Count 2.59 L Hemoglobin 7.8 L Hematocrit 24.0 L Mean Corpuscular Volume 92.7 Mean Corpuscular Hemoglobin 30.1 Mean Corpuscular Hemoglobin Concent 32.5 Red Cell Distribution Width 14.6 H Platelet Count 226 # Mean Platelet Volume 9.9 Immature Granulocytes % 0.400 Neutrophils % 62.0 Lymphocytes % 26.1 Monocytes % 9.5 Eosinophils % 1.6 Basophils % 0.4 Nucleated Red Blood Cells % 0.0 Immature Granulocytes # 0.020 Neutrophils # 3.4 Lymphocytes # 1.5 Monocytes # 0.5 Eosinophils # 0.1 Basophils # 0.0 Nucleated Red Blood Cells # 0.0 Exam/Review of Systems Exam Vitals Vital Signs Date Temp Pulse Resp B/P (MAP) Pulse Ox O2 O2 Flow FiO2 Time Delivery Rate 05/24/18 97.8 71 18 139/67 97 Room Air 08:13 (91) 05/22/18 2 10:19 Intake and Output 05/23/18 05/23/18 05/24/18 1515:00 23:00 07:00 IntakeIntake Total 70 ml 1290 ml 1000 ml BalanceBalance 70 ml 1290 ml 1000 ml Results Results 24hrs Laboratory Tests Test 05/24/18 09:44 White Blood Count 5.6 Red Blood Count 2.59 L Hemoglobin 7.8 L Hematocrit 24.0 L Mean Corpuscular Volume 92.7 Mean Corpuscular Hemoglobin 30.1 Mean Corpuscular Hemoglobin Concent 32.5 Red Cell Distribution Width 14.6 H Platelet Count 226 # Mean Platelet Volume 9.9 Immature Granulocytes % 0.400 Neutrophils % 62.0 Lymphocytes % 26.1 Monocytes % 9.5 Eosinophils % 1.6 Basophils % 0.4 Nucleated Red Blood Cells % 0.0 Immature Granulocytes # 0.020 Neutrophils # 3.4 Lymphocytes # 1.5 Monocytes # 0.5 Eosinophils # 0.1 Basophils # 0.0 Nucleated Red Blood Cells # 0.0 Medications Medication Current Medications IV Flush (NS 3 ml) 3 ml PER PROTOCOL IV ; Start 05/22/18 at 12:00 Ondansetron HCl (Zofran Inj) 4 mg Q6H PRN IV NAUSEA/VOMITING Last administered on 05/22/18at 16:34; Admin Dose 4 MG; Start 05/22/18 at 12:00 Acetaminophen (Tylenol Tab) 650 mg Q6H PRN PO .PAIN 1-3 OR TEMP Last administered on 05/23/18at 18:40; Admin Dose 650 MG; Start 05/22/18 at 12:00 Morphine Sulfate (morphine) 2 mg Q4H PRN IV SEVERE PAIN LEVEL 7-10; Start 05/22/18 at 12:00 Metoclopramide HCl (Reglan) 10 mg Q4H PRN IV NAUSEA; Start 05/22/18 at 18:30 Acetaminophen (Tylenol Tab) 1,000 mg ONCE PRN PO pain; Start 05/23/18 at 14:00; Stop 05/24/18 at 13:59 Polyethylene Glycol (Miralax) 17 gm DAILY PO Last administered on 05/24/18 09:25; Admin Dose 17 GM; Start 05/24/18 at 09:00 Pantoprazole (Protonix Tab) 40 mg BID@,18 PO Last administered on 05/24/18 05:07; Admin Dose 40 MG; Start 05/23/18 at 18:00 Atorvastatin Calcium (Lipitor) 80 mg HS PO Last administered on 05/23/18 20:42; Admin Dose 80 MG; Start 05/23/18 at 21:00 Metoprolol Tartrate (Lopressor) 50 mg BID PO Last administered on 05/24/18 09:25; Admin Dose 50 MG; Start 05/23/18 at 21:00 Lisinopril (Zestril) 20 mg DAILY PO Last administered on 05/24/18 09:25; Admin Dose 20 MG; Start 05/24/18 at 09:00 Escitalopram Oxalate (Lexapro) 10 mg DAILY PO Last administered on 05/24/18 09:24; Admin Dose 10 MG; Start 05/24/18 at 09:00 Lorazepam (Ativan) 1 mg Q6H PRN PO ANXIETY Last administered on 05/23/18 20:42; Admin Dose 1 MG; Start 05/23/18 at 17:30 Aspirin (Aspirin) 81 mg DAILY PO Last administered on 05/24/18 12:00; Admin Dose 81 MG; Start 05/24/18 at 11:30 LILY BROWNING May 24, 2018 12:48
[2018-05-24 14:00] VITALS: BP 120/72; PULSE 74; RESP 18
[2018-05-24 19:42] VITALS: BP 114/82; PULSE 76; RESP 18
[2018-05-24] MEDS: ATORVASTATIN 80 MG TAB PO SCH (21:24)
[2018-05-24] MEDS: LORAZEPAM 1 MG TAB PO PRN (23:14)
[2018-05-24] MEDS ORDERED: morphine LIQ (10 MG/5 ML) CUP PO PRN (23:45)
[2018-05-25] MEDS: PANTOPRAZOLE (EC) 40 MG TAB PO SCH (05:26)
[2018-05-25 08:03] VITALS: BP 133/65; PULSE 65; RESP 18
[2018-05-25] MEDS: POLYETHYLENE GLYCOL 17 GM PACKET PO SCH (09:00)
--- NOTE | 2018-05-25 09:00 | PN ---
Date/Time of Note Date/Time of Note DATE: 05/25/18 TIME: 09:00 Assessment/Plan VTE Prophylaxis Risk score (from [facility] [place])>0 risk: 2 SCD applied (from [facility] [place]): Yes Pharmacological prophylaxis: NA/contraindicated Pharm contraindication: bleeding Lines/Catheters IV [facility] Type (from [facility] Saline Lock Urinary Cath still in place: No Assessment/Plan Assessment/Plan 1. Acute Upper GI bleed - CT enteroscopy negative for acute bleeding. Repeat H/H improved to 9.5 without any further episodes of GI bleeding - GI on board and appreciate consultation. EGD revealed gastritis and Colonoscopy showed internal hemorrhoids but no active bleeding appreciated. hgb continues to drop and will continue to monitor. - Will need to continue PPI BID and Carafate for 4 weeks - Will resume aspirin given stent placement 06/2017 but hold Brilinta for now 2. Coronary artery disease - Stent placed 06/2017 so will resume aspirin but hold Brilinta. Discussed following up with Cardiac Exercise Physiologist to discuss restarting Brilinta 3. Dyslipidemia - continue statin 4. Depression - continue home medications 5. Disposition - Medically stable for discharge home Result Diagram: 05/25/18 0457 05/25/18 0457 Results 24hrs Laboratory Tests Test 05/24/18 09:44 05/24/18 12:58 05/24/18 15:40 05/25/18 04:57 White Blood Count 5.6 4.2 #L Red Blood Count 2.59 L 2.67 L Hemoglobin 7.8 L 7.6 L 7.8 L Hematocrit 24.0 L 23.3 L 24.2 L Mean Corpuscular Volume 92.7 90.6 Mean Corpuscular 30.1 29.2 Hemoglobin Mean Corpuscular 32.5 32.2 Hemoglobin Concent Red Cell Distribution 14.6 H 14.5 Width Platelet Count 226 # 235 Mean Platelet Volume 9.9 10.1 Immature Granulocytes % 0.400 0.200 Neutrophils % 62.0 45.0 Lymphocytes % 26.1 40.0 Monocytes % 9.5 11.3 H Eosinophils % 1.6 2.8 Basophils % 0.4 0.7 Nucleated Red Blood 0.0 0.0 Cells % Immature Granulocytes # 0.020 0.010 Neutrophils # 3.4 1.9 Lymphocytes # 1.5 1.7 Monocytes # 0.5 0.5 Eosinophils # 0.1 0.1 Basophils # 0.0 0.0 Nucleated Red Blood 0.0 0.0 Cells # Urine Color YELLOW Urine Clarity CLEAR Urine pH 6.0 Urine Specific [place] 1.004 Urine Ketones NEGATIVE Urine Nitrite NEGATIVE Urine Bilirubin NEGATIVE Urine Urobilinogen NEGATIVE Urine Leukocyte Esterase 3+ H Urine Microscopic RBC 1 Urine Microscopic WBC 3 Urine Squamous FEW Epithelial Cells Urine Bacteria FEW A Urine Mucus FEW A Urine Hemoglobin 2+ H Urine Glucose NEGATIVE Urine Total Protein NEGATIVE Sodium Level 142 Potassium Level 3.5 Chloride Level 110 Carbon Dioxide Level 27 Anion Gap 5 Blood Urea Nitrogen 4 #L Creatinine 0.45 Glucose Level 88 Calcium Level 8.5 Phosphorus Level 4.6 Magnesium Level 1.8 Albumin 2.8 L Subjective 24 Hr Interval Summary Free Text/Dictation Patients doing well and no further episode of GI bleeding. CT enteroscopy performed and negative for acute bleeding. Exam/Review of Systems Exam Vitals Vital Signs Date Temp Pulse Resp B/P (MAP) Pulse Ox O2 O2 Flow FiO2 Time Delivery Rate 05/25/18 97.8 65 18 133/65 97 08:03 (87) 05/24/18 Room Air 14:00 05/22/18 2 10:19 Intake and Output 05/24/18 05/24/18 05/25/18 1414:59 22:59 06:59 IntakeIntake Total 1210 ml 300 ml BalanceBalance 1210 ml 300 ml Exam General: Patient is laying in bed and answers questions appropriately Respiratory: Clear to auscultation bilaterally. no wheezing Cardiovascular: regular rate and rhythm, no obvious murmurs Gastrointestinal: soft, non-tender to palpation, bowel sounds heard. Neurological: Moves all extremities spontaneously Skin: No new skin lesions Results Results 24hrs Laboratory Tests Test 05/24/18 09:44 05/24/18 12:58 05/24/18 15:40 05/25/18 04:57 White Blood Count 5.6 4.2 #L Red Blood Count 2.59 L 2.67 L Hemoglobin 7.8 L 7.6 L 7.8 L Hematocrit 24.0 L 23.3 L 24.2 L Mean Corpuscular Volume 92.7 90.6 Mean Corpuscular 30.1 29.2 Hemoglobin Mean Corpuscular 32.5 32.2 Hemoglobin Concent Red Cell Distribution 14.6 H 14.5 Width Platelet Count 226 # 235 Mean Platelet Volume 9.9 10.1 Immature Granulocytes % 0.400 0.200 Neutrophils % 62.0 45.0 Lymphocytes % 26.1 40.0 Monocytes % 9.5 11.3 H Eosinophils % 1.6 2.8 Basophils % 0.4 0.7 Nucleated Red Blood 0.0 0.0 Cells % Immature Granulocytes # 0.020 0.010 Neutrophils # 3.4 1.9 Lymphocytes # 1.5 1.7 Monocytes # 0.5 0.5 Eosinophils # 0.1 0.1 Basophils # 0.0 0.0 Nucleated Red Blood 0.0 0.0 Cells # Urine Color YELLOW Urine Clarity CLEAR Urine pH 6.0 Urine Specific [place] 1.004 Urine Ketones NEGATIVE Urine Nitrite NEGATIVE Urine Bilirubin NEGATIVE Urine Urobilinogen NEGATIVE Urine Leukocyte Esterase 3+ H Urine Microscopic RBC 1 Urine Microscopic WBC 3 Urine Squamous FEW Epithelial Cells Urine Bacteria FEW A Urine Mucus FEW A Urine Hemoglobin 2+ H Urine Glucose NEGATIVE Urine Total Protein NEGATIVE Sodium Level 142 Potassium Level 3.5 Chloride Level 110 Carbon Dioxide Level 27 Anion Gap 5 Blood Urea Nitrogen 4 #L Creatinine 0.45 Glucose Level 88 Calcium Level 8.5 Phosphorus Level 4.6 Magnesium Level 1.8 Albumin 2.8 L Medications Medication Current Medications IV Flush (NS 3 ml) 3 ml PER PROTOCOL IV ; Start 05/22/18 at 12:00 Ondansetron HCl (Zofran Inj) 4 mg Q6H PRN IV NAUSEA/VOMITING Last administered on 05/22/18at 16:34; Admin Dose 4 MG; Start 05/22/18 at 12:00 Acetaminophen (Tylenol Tab) 650 mg Q6H PRN PO .PAIN 1-3 OR TEMP Last administered on 05/23/18at 18:40; Admin Dose 650 MG; Start 05/22/18 at 12:00 Metoclopramide HCl (Reglan) 10 mg Q4H PRN IV NAUSEA; Start 05/22/18 at 18:30 Polyethylene Glycol (Miralax) 17 gm DAILY PO Last administered on 05/24/18at 09:25; Admin Dose 17 GM; Start 05/24/18 at 09:00 Pantoprazole (Protonix Tab) 40 mg BID@06,18 PO Last administered on 05/25/18 05:26; Admin Dose 40 MG; Start 05/23/18 at 18:00 Atorvastatin Calcium (Lipitor) 80 mg HS PO Last administered on 05/24/18 21:24; Admin Dose 80 MG; Start 05/23/18 at 21:00 Metoprolol Tartrate (Lopressor) 50 mg BID PO Last administered on 05/24/18 21:28; Admin Dose 50 MG; Start 05/23/18 at 21:00 Lisinopril (Zestril) 20 mg DAILY PO Last administered on 05/24/18 09:25; Admin Dose 20 MG; Start 05/24/18 at 09:00 Escitalopram Oxalate (Lexapro) 10 mg DAILY PO Last administered on 05/24/18 09:24; Admin Dose 10 MG; Start 05/24/18 at 09:00 Lorazepam (Ativan) 1 mg Q6H PRN PO ANXIETY Last administered on 05/24/18 23:14; Admin Dose 1 MG; Start 05/23/18 at 17:30 Aspirin (Aspirin) 81 mg DAILY PO Last administered on 05/24/18 12:00; Admin Dose 81 MG; Start 05/24/18 at 11:30 Morphine Sulfate (morphine) 6 mg Q4H PRN PO SEVERE PAIN LEVEL 7-10; Start 05/24/18 at 23:45 CALLUM VALVERDE MD May 25, 2018 09:00
[2018-05-25] MEDS ORDERED: IOHEXOL 100 ML ONE (10:48)
[2018-05-25] MEDS ORDERED: SOD CHLORIDE 0.9% 100 ML ONE (10:48)
[2018-05-25] MEDS ORDERED: IOHEXOL 350MG/ML 50 ML BTL ONE (10:48)
[2018-05-25] MEDS ORDERED: LIDOCAINE 1% (MDV) 20 ML INJ ONE (10:49)
[2018-05-25] MEDS ORDERED: BARIUM SULFATE 0.1% 450 ML BTL (VOLUMEN) PO ONE (10:50)
--- NOTE | 2018-05-25 11:46 | PN ---
Date/Time of Note Date/Time of Note DATE: 05/25/18 TIME: 11:37 Assessment/Plan VTE Prophylaxis Risk score (from [facility])>0 risk: 2 SCD applied (from [facility]): Yes Pharmacological prophylaxis: other (scds) Lines/Catheters IV Catheter Type (from [facility]): [place] Urinary Cath still in place: No Assessment/Plan Hospital Course Suspected GI bleed with melanotic stools and coffee grounds emesis Anemia secondary to above EGD 05/23/18 Gastritis, linear erosions, specimens obtained (bx neg for h.pylori, or malignancy) Colonoscopy 05/23/18 Left-sided diverticulosis, no evidence of diverticulitis or bleeding Internal hemorrhoids CAD status post cardiac stent [place] HTN Hemorrhoids Plan: PPI BID / Carafate QID x4 weeks then stop Ct enterography- pending Patient seen in collaboration with Dr. Escobar/Alejandro Fontaine text: Course reviewed with nursing staff Patient interviewed and examined All labs, imaging and other results reviewed Patient is off the floor. I spoke to the patient's and son Who state patient is not having anymore c/o BRBPR Discussed HGB- currently stable. PHYSICAL EXAMINATION: Off the floor Result Diagram: 05/25/18 0457 05/25/18 0457 Results 24hrs Laboratory Tests Test 05/24/18 12:58 05/24/18 15:40 05/25/18 04:54 05/25/18 04:57 Hemoglobin 7.6 L 7.8 L Hematocrit 23.3 L 24.2 L Urine Color YELLOW Urine Clarity CLEAR Urine pH 6.0 Urine Specific Blair 1.004 Urine Ketones NEGATIVE Urine Nitrite NEGATIVE Urine Bilirubin NEGATIVE Urine Urobilinogen NEGATIVE Urine Leukocyte Esterase 3+ H Urine Microscopic RBC 1 Urine Microscopic WBC 3 Urine Squamous FEW Epithelial Cells Urine Bacteria FEW A Urine Mucus FEW A Urine Hemoglobin 2+ H Urine Glucose NEGATIVE Urine Total Protein NEGATIVE Iron Level 28 L Total Iron Binding 366 Capacity Percent Iron Saturation 8 L White Blood Count 4.2 #L Red Blood Count 2.67 L Mean Corpuscular Volume 90.6 Mean Corpuscular 29.2 Hemoglobin Mean Corpuscular 32.2 Hemoglobin Concent Red Cell Distribution 14.5 Width Platelet Count 235 Mean Platelet Volume 10.1 Immature Granulocytes % 0.200 Neutrophils % 45.0 Lymphocytes % 40.0 Monocytes % 11.3 H Eosinophils % 2.8 Basophils % 0.7 Nucleated Red Blood 0.0 Cells % Immature Granulocytes # 0.010 Neutrophils # 1.9 Lymphocytes # 1.7 Monocytes # 0.5 Eosinophils # 0.1 Basophils # 0.0 Nucleated Red Blood 0.0 Cells # Sodium Level 142 Potassium Level 3.5 Chloride Level 110 Carbon Dioxide Level 27 Anion Gap 5 Blood Urea Nitrogen 4 #L Creatinine 0.45 Glucose Level 88 Calcium Level 8.5 Phosphorus Level 4.6 Magnesium Level 1.8 Albumin 2.8 L Exam/Review of Systems Exam Vitals Vital Signs Date Temp Pulse Resp B/P (MAP) Pulse Ox O2 O2 Flow FiO2 Time Delivery Rate 05/25/18 97.8 65 18 133/65 97 08:03 (87) 05/24/18 Room Air 14:00 05/22/18 2 10:19 Intake and Output 05/24/18 05/24/18 05/25/18 1414:59 22:59 06:59 IntakeIntake Total 1210 ml 300 ml BalanceBalance 1210 ml 300 ml Results Results 24hrs Laboratory Tests Test 05/24/18 12:58 05/24/18 15:40 05/25/18 04:54 05/25/18 04:57 Hemoglobin 7.6 L 7.8 L Hematocrit 23.3 L 24.2 L Urine Color YELLOW Urine Clarity CLEAR Urine pH 6.0 Urine Specific Blair 1.004 Urine Ketones NEGATIVE Urine Nitrite NEGATIVE Urine Bilirubin NEGATIVE Urine Urobilinogen NEGATIVE Urine Leukocyte Esterase 3+ H Urine Microscopic RBC 1 Urine Microscopic WBC 3 Urine Squamous FEW Epithelial Cells Urine Bacteria FEW A Urine Mucus FEW A Urine Hemoglobin 2+ H Urine Glucose NEGATIVE Urine Total Protein NEGATIVE Iron Level 28 L Total Iron Binding 366 Capacity Percent Iron Saturation 8 L White Blood Count 4.2 #L Red Blood Count 2.67 L Mean Corpuscular Volume 90.6 Mean Corpuscular 29.2 Hemoglobin Mean Corpuscular 32.2 Hemoglobin Concent Red Cell Distribution 14.5 Width Platelet Count 235 Mean Platelet Volume 10.1 Immature Granulocytes % 0.200 Neutrophils % 45.0 Lymphocytes % 40.0 Monocytes % 11.3 H Eosinophils % 2.8 Basophils % 0.7 Nucleated Red Blood 0.0 Cells % Immature Granulocytes # 0.010 Neutrophils # 1.9 Lymphocytes # 1.7 Monocytes # 0.5 Eosinophils # 0.1 Basophils # 0.0 Nucleated Red Blood 0.0 Cells # Sodium Level 142 Potassium Level 3.5 Chloride Level 110 Carbon Dioxide Level 27 Anion Gap 5 Blood Urea Nitrogen 4 #L Creatinine 0.45 Glucose Level 88 Calcium Level 8.5 Phosphorus Level 4.6 Magnesium Level 1.8 Albumin 2.8 L Medications Medication Current Medications IV Flush (NS 3 ml) 3 ml PER PROTOCOL IV ; Start 05/22/18 at 12:00 Ondansetron HCl (Zofran Inj) 4 mg Q6H PRN IV NAUSEA/VOMITING Last administered on 05/22/18 16:34; Admin Dose 4 MG; Start 05/22/18 at 12:00 Acetaminophen (Tylenol Tab) 650 mg Q6H PRN PO .PAIN 1-3 OR TEMP Last administered on 05/23/18 18:40; Admin Dose 650 MG; Start 05/22/18 at 12:00 Metoclopramide HCl (Reglan) 10 mg Q4H PRN IV NAUSEA; Start 05/22/18 at 18:30 Polyethylene Glycol (Miralax) 17 gm DAILY PO Last administered on 05/24/18 09:25; Admin Dose 17 GM; Start 05/24/18 at 09:00 Pantoprazole (Protonix Tab) 40 mg BID@06,18 PO Last administered on 05/25/18 05:26; Admin Dose 40 MG; Start 05/23/18 at 18:00 Atorvastatin Calcium (Lipitor) 80 mg HS PO Last administered on 05/24/18 21:24; Admin Dose 80 MG; Start 05/23/18 at 21:00 Metoprolol Tartrate (Lopressor) 50 mg BID PO Last administered on 05/24/18 21:28; Admin Dose 50 MG; Start 05/23/18 at 21:00 Lisinopril (Zestril) 20 mg DAILY PO Last administered on 05/24/18 09:25; Admin Dose 20 MG; Start 05/24/18 at 09:00 Escitalopram Oxalate (Lexapro) 10 mg DAILY PO Last administered on 05/24/18 09:24; Admin Dose 10 MG; Start 05/24/18 at 09:00 Lorazepam (Ativan) 1 mg Q6H PRN PO ANXIETY Last administered on 05/24/18 23:14; Admin Dose 1 MG; Start 05/23/18 at 17:30 Aspirin (Aspirin) 81 mg DAILY PO Last administered on 05/24/18at 12:00; Admin Dose 81 MG; Start 05/24/18 at 11:30 Morphine Sulfate (morphine) 6 mg Q4H PRN PO SEVERE PAIN LEVEL 7-10; Start 05/24/18 at 23:45 LILY BROWNING May 25, 2018 11:46
[2018-05-25] MEDS ORDERED: GLUCAGON 1 MG INJ ONE (11:48)
[2018-05-25] MEDS: ESCITALOPRAM 10 MG TAB PO SCH (13:09)
[2018-05-25] MEDS: ASPIRIN 81 MG TAB PO SCH (13:09)
[2018-05-25] MEDS: LISINOPRIL 20 MG TAB PO SCH (13:11)
[2018-05-25] MEDS: METOPROLOL 50 MG TAB PO SCH (13:11)
[2018-05-25 14:36] VITALS: BP 109/63; PULSE 82; RESP 18
[2018-05-25] MEDS ORDERED: FERR325T5 PO (15:30)
[2018-05-25] MEDS ORDERED: ONDA4TAB14 PO (15:30)
[2018-05-25] MEDS ORDERED: SUCR1TAB56 PO (15:30)
[2018-05-25] MEDS ORDERED: PANT40TA4 PO (15:30)
[2018-05-25] MEDS ORDERED: LORA1TAB PO (15:30)
--- NOTE | 2018-05-25 15:35 | PDOCDIS ---
Discharge Instructions DIAGNOSIS Discharge Diagnosis 1. Acute Upper GI bleed secondary to gastritis 2. Large hiatal hernia 3. Internal hemorrhoids 4. CAD s/p PCI 06/2017 5. Dyslipidemia 6. Iron deficiency anemia 7. Anxiety/Depression CONDITION [id number] Patient Condition: [id number] Stable HOME CARE INSTRUCTIONS: [id number] Diet Instructions: [id number] Low Fat /Cholesterol ACTIVITY: [id number] Activity Restrictions: Beggw2p No Restrictions [id number] Bathing Restrictions: [id number] Shower FOLLOW UP/APPOINTMENTS Follow-up Plan 1. Follow up with your primary care physician in 1-2 weeks 2. Touch base with your GI physician and discuss that you recently had EGD/colonoscopy performed. You were found with gastritis and internal hemorrhoids but no active bleeding 3. Continue all medications as prescribed, however, your Brilinta was placed on hold due to recent bleed. Discuss with your Greaser Operator if need to restart 4. Take Protonix twice a day for 8 weeks then daily. Touch base with your GI physician about continuing on the medication 5. Take Carafate 4 times a day for 4 weeks 6. Avoid high acid producing foods to help limit reflux symptoms 7. Take iron daily due to iron levels being low. You were found with iron level of 28 and low normal is 35. You may experience constipation or dark stools when taking iron. Increase fiber intake and PO hydration 8. If experiencing any other concerning symptoms. please go to your closest emergency department CALLUM VALVERDE MD May 25, 2018 15:35
--- NOTE | 2018-05-25 17:23 | DS ---
Date/Time of Note Date/Time of Note DATE: 05/25/18 TIME: 17:18 Discharge Summary Admission/Discharge Info Admit Date/Time May 22, 2018 at 11:37 Discharge Date/Time May 25, 2018 at 17:00 Discharge Diagnosis 1. Acute Upper GI bleed secondary to gastritis 2. Large hiatal hernia 3. Internal hemorrhoids 4. CAD s/p PCI 06/2017 5. Dyslipidemia 6. Iron deficiency anemia 7. Anxiety/Depression Patient Condition: Stable Consults GI- Dr. Allen Procedures EGD 05/23/18 Gastritis, linear erosions, specimens obtained (bx neg for h.pylori) Colonoscopy 05/23/18 Left-sided diverticulosis, no evidence of diverticulitis or bleeding Internal hemorrhoids PROCEDURE: CT Abdomen and Pelvis with and without contrast. CLINICAL INDICATION: anemia r/o SB abnormalities TECHNIQUE: CT scan of the abdomen and pelvis with and without contrast was performed on a multi-detector high-resolution CT scanner. The patient was scanned before and following the uncomplicated intravenous administration of 125 cc of Omnipaque-350 IV contrast. Multiple postcontrast sequences were obtained. Oral contrast was not administered. Coronal and sagittal reformatted images were obtained from the axial source images. DICOM images are available. CTDI equals 12.84 +12.81 +12.83 +10.26 mGy, and DLP equals 2162.24 mGy-cm. One or more of the following dose reduction techniques were used: - Automated exposure control. - Adjustment of the mA and/or kV according to patient size. - Use of iterative reconstruction technique. COMPARISON: 05/22/2018 CT abdomen/pelvis.. FINDINGS: Lower thorax: Right middle lobe cluster of cysts, nonspecific may reflect prior infection/inflammation. Mild left lower lobe subsegmental atelectasis versus scarring.. Liver: Normal. Bile Ducts: No biliary dilatation. Gallbladder: A few layering gallstones without evidence of cholecystitis Pancreas: Normal. Spleen: Normal. Adrenal Glands: Normal. 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 Bladder: Normal. Reproductive organs: Normal. Gastrointestinal Tract: Large hiatal hernia containing a large portion of the stomach. Colonic diverticulosis without evidence of diverticulitis. No evidence of appendicitis. No small bowel abnormality identified to explain the patient's anemia. Peritoneum/Retroperitoneum: No free fluid or free air. Lymph nodes: Normal. Vessels: Moderate aorto-iliac atherosclerosis. Abdominal/Pelvic Wall: Normal. Bones: Multilevel degenerative changes of the visualized spine. Degenerative change of the bilateral femoroacetabular joints, severe on the right with joint space narrowing and bone on bone articulation superiorly. IMPRESSION: 1. Large hiatal hernia containing a large portion of the stomach. 2. No small bowel abnormality visualized to explain the patient's anemia. Consider capsule endoscopy if not previously performed. 3. 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 4. Additional findings as above. RPTAT: RR Physician Sabrina Date Time Electronically viewed and signed by Physician Sabrina on 05/25/2018 15:28 PROCEDURE: CT abdomen and pelvis without contrast. CLINICAL INDICATION: GI bleed TECHNIQUE: CT scan of the abdomen and pelvis without contrast was performed and is reconstructed at 2.5 mm contiguous axial intervals from the dome of the diaphragm to the inferior pubic rami.. The patient was scanned without intravenous contrast. Sagittal and coronal reformatted images were obtained from the axial source images. The calculated radiation dose measures 461 mGy centimeters. The CTDI measures 8.8 mGy. Individualized dose optimization technique was used for the performance of this exam. This included 1. Automated exposure control. 2. Adjustment of the mA and / or kV according to the patient's size. 3. Use of iterative reconstructed technique. COMPARISON: None. FINDINGS: The lung bases are clear of any infiltrate or nodule. No effusion is seen. There is a large hiatal hernia. The liver is of normal size, contour and attenuation with no mass or ductal dilatation. There are gallstones. No splenic, adrenal or pancreatic abnormalities present. Kidneys are of normal size and contour. No hydronephrosis, calculus or masses seen. Ureters are of normal course and caliber with no stone. No bladder mass or stone is present. Uterus appears normal. No adnexal masses present. There is no aneurysm. Mild vascular calcifications are seen. No adenopathy is present. No bowel mass or obstruction is present. The appendix is normal. There is diverticulosis. No phlegmon, ascites or pneumoperitoneum is visualized. There is osteoarthritis of the right hip. Senescent facet arthropathy is seen in the lower lumbar spine. There is degenerative disc disease in the lumbar spine. IMPRESSION: No evidence of urolithiasis, obstructive uropathy, diverticulitis or appendicitis. Diverticulosis. Cholelithiasis. Hiatal hernia. No bowel mass or obstruction. Senescent degenerative changes spine. Osteoarthritis right hip joint. .Jack Morgan MD, MD Date Time Electronically viewed and signed by .Jack Morgan MD, MD on 05/22/2018 10:46 Hx of Present Illness Patient is a female with a past medical history significant for coronary artery disease and depression who presents to [facility] for 1 day onset of dark stool. Patient states that she has never had a upper GI bleed, dark stool before but does have a history of hemorrhoids. Patient states that there was nothing that preceded the event, she was visiting from [facility] to help her daughter with a new baby. Patient currently complains of some abdominal discomfort but denies any abdominal pain. Patient denies chest pain, shortness of breath, headache, leg pain, bowel or bladder dysfunction. Hospital Course Patient was admitted for workup of upper GI bleed and GI was consulted. Patient underwent EGD and colonoscopy with results noted above with no signs of active bleeding. Patient also had CT enterography performed which was negative for acute bleeding. She was aware of findings of hiatal hernia and follows with GI specialist as outpatient. Patients hemoglobin was trended and improvement noted. She was found to have iron deficiency anemia and started on PO iron. Patients presenting symptoms improved significantly and on day of discharge, patients vitals and physical exam were stable. Patient was discharged home in stable condition. Home Meds Active Scripts Ferrous Sulfate (Ferrous Sulfate) 325 Mg Tablet.dr, 325 MG PO DAILY for 30 Days, #30 TAB 6 Refills Prov:CALLUM VALVERDE MD 05/25/18 Ondansetron (Ondansetron Odt) 4 Mg Tab.rapdis, 4 MG PO Q6H PRN for NAUSEA AND/OR VOMITING for 7 Days, #20 TAB Prov:CALLUM VALVERDE MD 05/25/18 Sucralfate* (Carafate*) 1 Gm Tab, 1 GM PO Q6 for 30 Days, #120 TAB Prov:CALLUM VALVERDE MD 05/25/18 Pantoprazole* (Pantoprazole*) 40 Mg Tablet.dr, 40 MG PO BID@06,18 for 30 Days, #60 TAB 6 Refills Prov:CALLUM VALVERDE MD 05/25/18 Lorazepam* (Lorazepam*) 1 Mg Tablet, 1 MG PO Q6H PRN for ANXIETY for 30 Days, #15 TAB Prov:CALLUM VALVERDE MD 05/25/18 Follow-up Plan 1. Follow up with your primary care physician in 1-2 weeks 2. Touch base with your GI physician and discuss that you recently had EGD/colonoscopy performed. You were found with gastritis and internal hemorrhoids but no active bleeding 3. Continue all medications as prescribed, however, your Brilinta was placed on hold due to recent bleed. Discuss with your Substation Maintenance Technician if need to restart 4. Take Protonix twice a day for 8 weeks then daily. Touch base with your GI physician about continuing on the medication 5. Take Carafate 4 times a day for 4 weeks 6. Avoid high acid producing foods to help limit reflux symptoms 7. Take iron daily due to iron levels being low. You were found with iron level of 28 and low normal is 35. You may experience constipation or dark stools when taking iron. Increase fiber intake and PO hydration 8. If experiencing any other concerning symptoms. please go to your closest emergency department Primary Care Provider Not On Staff Doctor Time spent on discharge: > 30 minutes Pending Labs Laboratory Tests Test 05/25/18 04:54 05/25/18 04:57 05/25/18 13:34 Iron Level 28 ug/dl (35-150) Total Iron Binding 366 ug/dl (241-421) Capacity Percent Iron 8 % SAT (22-52) Saturation White Blood Count 4.2 10^3/ul (4.8-10.8) Red Blood Count 2.67 10^6/ul (4.20-5.40 ) Hemoglobin 7.8 9.5 g/dl (12.0-16.0) g/dl (12.0-16.0) Hematocrit 24.2 % (37.0-47.0) 29.0 % (37.0-47.0) Mean Corpuscular 90.6 Volume fl (82.0-101.0) Mean Corpuscular 29.2 Hemoglobin pg (29.0-33.0) Mean Corpuscular 32.2 Hemoglobin Concent g/dl (32.0-37.0) Red Cell 14.5 % (11.5-14.5) Distribution Width Platelet Count 235 10^3/UL (140-415) Mean Platelet 10.1 fl (7.4-10.4) Volume Immature 0.200 Granulocytes % % (0.001-0.429) Neutrophils % 45.0 % (39.0-77.0) Lymphocytes % 40.0 % (15.0-51.0) Monocytes % 11.3 % (0.0-11.0) Eosinophils % 2.8 % (0.0-7.0) Basophils % 0.7 % (0.0-2.0) Nucleated Red Blood 0.0 Cells % /100WBC (0.0-0.0) Immature 0.010 Granulocytes # 10^3/ul (0.0-0.031 ) Neutrophils # 1.9 10^3/ul (1.6-7.5) Lymphocytes # 1.7 10^3/ul (0.8-2.9) Monocytes # 0.5 10^3/ul (0.3-0.9) Eosinophils # 0.1 10^3/ul (0.0-0.5) Basophils # 0.0 10^3/ul (0.0-0.1) Nucleated Red Blood 0.0 Cells # 10^3/ul (0.0-0.0) Sodium Level 142 mmol/L (135-144) Potassium Level 3.5 mmol/L (3.5-5.1) Chloride Level 110 mmol/L (97-110) Carbon Dioxide 27 mmol/L (21-31) Level Anion Gap 5 (5-13) Blood Urea Nitrogen 4 mg/dl (7-20) Creatinine 0.45 mg/dl (0.44-1.00) Glucose Level 88 mg/dl (70-220) Calcium Level 8.5 mg/dl (8.4-10.2) Phosphorus Level 4.6 mg/dl (2.5-4.9) Magnesium Level 1.8 mg/dl (1.7-2.5) Albumin 2.8 g/dl (3.3-4.9) CALLUM VALVERDE MD May 25, 2018 17:23
--- NOTE | 2018-05-26 08:48 | RADRPT ---
Vent Rate: 75 bpm RR Interval: 0 msec MT Interval: 162 msec QRS Duration: 82 msec QT Interval: 378 msec QTC Interval: 422 msec P-R-T [place]: 46 - 50 - 2 degrees Normal sinus rhythm with sinus arrhythmia RSR ` orattern in V1 suggests right ventricular conduction delay Nonspecific ST abnormality Abnormal ECG Electronically Signed By: Justo Espinoza
== END 2018-05-25 17:00 | disposition home or self-care (01) | DRG 378 ==
LOC: E/R 09:59 → MS1 11:37
PROVIDERS: ADMIT Internal Medicine; ATTEND Internal Medicine
PROC: 0DB68ZX Excision of Stomach, Via Natural or Artificial Opening Endoscopic, Diagnostic (ICD-10-PCS; principal; 2018-05-23 15:00)
PROC: 0DJD8ZZ Inspection of Lower Intestinal Tract, Via Natural or Artificial Opening Endoscopic (ICD-10-PCS; 2018-05-23 15:00)
DX: K29.71 Gastritis, unspecified, with bleeding (principal); D62 Acute posthemorrhagic anemia; I25.10 Atherosclerotic heart disease of native coronary artery without angina pectoris; E78.5 Hyperlipidemia, unspecified; F32.9 Major depressive disorder, single episode, unspecified; I10 Essential (primary) hypertension; I25.2 Old myocardial infarction; F41.9 Anxiety disorder, unspecified; K44.9 Diaphragmatic hernia without obstruction or gangrene; K64.8 Other hemorrhoids; K57.90 Diverticulosis of intestine, part unspecified, without perforation or abscess without bleeding; Z95.5 Presence of coronary angioplasty implant and graft; Z85.3 Personal history of malignant neoplasm of breast
CPT/HCPCS: 36415; 74176; 74178; 80053; 80069; 81001; 82270; 83036; 83540; 83690; 83735; 84484; 85014; 85018; 85025; 85610; 85730; 86850; 86900; 86901; 88305; 88312; 93005; 96374; 96375; C9113; J1610; J2405; J2765; J7030; Q9967